=== PATIENT | male | born 1955 | race Caucasian/White ===

== ENCOUNTER 2022-06-17 02:14 | Emergency (ER) | payer MEDICARE, BC, SELFPAY ==
[2022-06-17 02:22] VITALS: BP 131/67; PULSE 126; TEMP 36.9; O2SAT 99
[2022-06-17] MEDS: Ondansetron 4 MG/2 ML VIAL (02:45)
--- NOTE | 2022-06-17 02:45 | RT.EKG_ITS ---
APPROVED REPORT Exam: Resting ECG Reason for Exam: nausea Patient Location: E HR:102 bpm ECG Measurements Heart Rate 102 AXIS WA 160 P 42 QRSd 150 QRS -35 QT 372 T 130 QTc 485 Conclusion Sinus tachycardia Left bundle branch block. ST elevation secondary to IVCD. No comparison
--- NOTE | 2022-06-17 02:47 | ED.GENADUL_ITS ---
Discharge Plan Disposition Patient Disposition: Home Condition: Improving Discharge Details Clinical Impression: Urinary tract infection Primary Care Provider: Charles Spears ED Provider: Michi Shaffer Home Meds and New Rx's Prescriptions: New cefpodoxime 100 mg tablet 100 mg PO BID 7 Days Qty: 14 0RF Rx Instructions: must administer with a meal/food Discharge Instructions Instructions: Urinary Tract Infection in Men (ED) Additional Instructions: Home to rest today. Take antibiotics as prescribed until finished. Continue small, frequent sips of fluids to maintain hydration. Tylenol and ibuprofen as needed for aches or fever. Return to the emergency department for any acute concern. Medical Decision Making 66-year-old male presents from home with his . He has had 4 days of intermittent episodes of nausea with dry heaves. He has general malaise, lower abdominal discomfort and some reported burning with urination. Differential diagnosis considered is broad including urinary tract infection, renal colic, consideration of intra-abdominal pathology. Patient had IV access established, fluids and antiemetic initiated. Laboratories reveal a white count of 12, hematocrit 48, platelets 165. Unremarkable electrolytes, BUN 21, creatinine 1.2. LFTs unremarkable and lipase negative. Urinalysis is notable for moderate leuk esterase, greater than 50 white blood cells per high-powered field and bacteria present. Patient was referred for CT imaging to rule out obstructive urinary pathology. There is no acute findings. Please see the formal report. Note is made of enlarged prostate. Patient improved following fluids, antiemetic and parenteral antibiotic. This is consistent with acute cystitis, cannot exclude underlying mild prostatitis. Will treat with a course of oral antibiotics. He stable, improved, appropriate for discharge to home. He will follow-up with Dr. Spears as planned this coming week. HPI General Mode of arrival: ambulatory . Date/Time Provider Initiated Documentation: 06/17/22 02:38 . Limitations to Documentation: no limitations . Information obtained by: patient and family . History of Present Illness 66 year old M presents to the emergency department with the chief complaint of Nausea, dry heaves, malaise, described as moderate, Quality is described as constant, Patient reports no radiation. Patient started experiencing this day(s) and it has been constant. No relieving factors improve symptom(s), No exacerbating factors reported . Patient notes fever/chills, loss of appetite, malaise and nausea/vomiting; denies chest pain, shortness of breath and syncope. Patient did receive the following treatments prior to arrival, none Related Data Home Medications Medication Instructions Recorded Confirmed cefpodoxime 100 mg tablet 100 mg PO BID 7 days #14 tabs 06/17/22 Previous Rx's Medication Instructions Recorded cefpodoxime 100 mg tablet 100 mg PO BID 7 days #14 tabs 06/17/22 General Stated Complaint: [facility] JOSE F: 3 Review of Systems Narrative: 8 systems reviewed and otherwise negative PFSH All Active Problems (Updated 06/17/22 @ 05:31 by Michi Shaffer MD) Urinary tract infection (Acute) Social History Smoking/Tobacco Use Status: Never Smoking risk assessment performed?: Yes Alcohol Intake: never Drug use: Never Substance use type: does not use Do you feel safe at home: Yes Do you feel safe in your relationship?: Yes Exam Narrative Exam Narrative: GEN: awake, alert, oriented 3. Pleasant, well groomed, interactive. HEAD: Normocephalic, atraumatic ENT: Mucous membranes dry, oropharynx unremarkable, External ear exam unremarkable EYES: PERRL, EOMI NECK: Full ROM, no CRISTINA, no menigismus CHEST/RESP: Nontender, clear to auscultation bilateral, no wheeze/rhonchi/rales CARDIOVASCULAR: Regular and tachycardic, no murmur, rub cassy. 2+ Rad pulse bilateral ABDOMEN: Soft, nontender, no mass. +Bowel sounds EXT: Full ROM, no edema, no rash Neuro: Grossly normal neurologic exam, conversant, interactive. Psych: Speech fluent, thoughts congruent, affect normal Course Vital Signs Vital signs: Vital Signs Temperature 36.9 C 06/17/22 02:22 Pulse 126 H 06/17/22 02:22 Blood Pressure 131/67 06/17/22 02:22 Pulse Oximetry 99 06/17/22 02:22 Temperature 36.9 C 06/17/22 02:22 Temperature Source Oral 06/17/22 02:22 Pulse 126 H 06/17/22 02:22 Respiratory Effort 06/17/22 02:27 Blood Pressure 131/67 06/17/22 02:22 Blood Pressure Position Sitting 06/17/22 02:22 Pulse Oximetry 99 06/17/22 02:22 Oxygen Delivery Method Room Air 06/17/22 02:22 Oxygen Flow Rate 0 06/17/22 02:22 Pain Level 5 06/17/22 02:22
[2022-06-17 02:57] LABS: Abs Immature Grans 0.04 10^3/uL (0.0-0.06); Absolute Basophil Count 0.02 10^3/uL (0.0-0.2); Absolute Eosinophil Count 0.14 10^3/uL (0.0-0.7); Absolute Lymphocyte Count 0.87 10^3/uL (1.2-3.4); Absolute Monocyte Count 1.17 10^3/uL (0.1-0.8); Absolute Neutrophil Count 10.19 10^3/uL (1.2-6.7); Basophils % 0.2; Eosinophils % 1.1; HCT 48.9 % (40.0-50.0); HGB 16.7 g/dL (13.5-17.5); Immature Grans % 0.3; MCH 29.2 pg (27.0-33.0); MCHC 34.2 % (32.0-36.0); MCV 86 fL (80-95); Monocytes % 9.4; Platelet Count 165 10^3/uL (130-400); RBC 5.71 10^6/uL (4.36-5.78); RDW 12.7 % (11.8-14.1); RDW-SD 39.7 fL; WBC 12.43 10^3/uL (4.4-10.8)
[2022-06-17 03:15] LABS: ALT 19 U/L (16-63); AST 20 U/L (15-37); Albumin 3.3 g/dL (3.4-5.0); Alkaline Phosphatase 81 U/L (46-116); Anion Gap 13.2 mmol/L (3-11); BUN 21 mg/dL (7-18); Bilirubin, Total 1.1 mg/dL (0.2-1.0); CO2 22.8 mmol/L (21.0-32.0); CREATININE 1.2 mg/dL (0.70-1.30); Calcium 8.8 mg/dL (8.5-10.1); Chloride 100 mmol/L (98-107); Estimated GFR 66.28 (mL/min/1.73m2); Glucose 140 mg/dL (74-106); Lipase 70 U/L (73-393); Magnesium 1.8 mg/dL (1.8-2.4); Potassium 3.9 mmol/L (3.5-5.1); Sodium 136 mmol/L (136-145); Total Protein 7.5 g/dL (6.4-8.2); Troponin I < 50 ng/L (<or=60)
[2022-06-17] MEDS: Normal Saline 1,000 ML 1000 ML IV (03:22)
[2022-06-17 03:34] LABS: COVID-19 PCR Negative (Negative); Influenza A PCR Negative (Negative); Influenza B PCR Negative (Negative); RSV PCR Negative (Negative)
[2022-06-17 03:36] LABS: Source Nasopharynx
[2022-06-17 03:49] LABS: Bilirubin Small (Negative); Blood Small (Negative); Clarity Cloudy (Clear); Glucose Negative (Negative); Ketones 40 mg/dL (Negative); Leukocyte Esterase Moderate (Negative); Nitrite Negative (Negative); Specific Gravity 1.025 (1.005-1.025)
[2022-06-17 03:59] LABS: Bacteria Many HPF (Negative); C & S Indicated? Yes; Crystals Negative HPF (Negative); Epithelial Cells Few HPF (Negative); Mucus Negative (Negative); RBC 0-2 HPF (0-2); WBC >50 HPF (0-5)
--- NOTE | 2022-06-17 04:00 | DI.CT_ITS ---
Exam(s) CT RENAL COLIC WO EXAM: CT RENAL COLIC WO CLINICAL HISTORY: LOwer abd pain, dysuria. TECHNIQUE: Imaging Protocol: Axial computed tomography images with coronal and sagittal reformatted images were created and reviewed. CONTRAST MATERIAL: Noncontrast COMPARISON: No exams were available for comparison FINDINGS: ABDOMEN: Lung Bases: 6 millimeter nodule left lateral lung base. Liver: Hepatic steatosis. Multiple small low-density lesions, likely cysts. Gallbladder and biliary tract: Status post cholecystectomy. No radiodense calculus or dilation. Pancreas: Normal density, no calcifications or inflammatory process. Spleen: Normal. Kidneys: Normal size, contour and axis. No radiodense stones or obstructive uropathy. Large cyst upp er pole left kidney. No suspicious masses seen. Adrenal glands: No masses seen. soft tissues: Tiny fatty containing umbilical hernia. ABdominal Aorta: Atherosclerotic changes. 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 PELVIS: Bladder: Symmetric distention, no gross wall thickening. No evidence of stones.No visible mass. Bowel: No obstruction or bowel wall thickening. Reproductive: Prostate mildly enlarged. Peritoneal cavity: No ascites, collection or mesenteric inflammatory response. Bones: Unremarkable for age.. IMPRESSION: No acute abnormality. No evidence of hydronephrosis or urinary tract calculi. Large left renal cyst . 6 millimeter nodule left lung base. Six-month follow-up CT recommended. RADIATION DOSE DELIVERED: 1,350.23mGy.cm Total DLP DATA REPOSITORY: All CT scans at this facility are submitted to the National Radiology Data Registry (NRDR) Dose Index Registry (DIR) with the [employer] (A[employer]). RADIATION OPTIMIZATION: All CT scans at this facility use at least one of these dose optimization te chniques: automated exposure control; mA and/or kV adjustment per patient size (includes targeted exa ms where dose is matched to clinical indication); or iterative reconstruction.
[2022-06-17] MEDS: cefTRIAXone 1 GM/50 ML BAG IVPB (04:34)
--- NOTE | 2022-06-17 05:28 | DI.VRAD_ITS ---
PROCEDURE INFORMATION: Exam: CT Abdomen And Pelvis Without Contrast Exam date and time: 06/17/2022 4:16 AM Age: 66 years old Clinical indication: Abdominal pain; Other: Lower quadrant; Prior surgery; Surgery date: 6+ months TECHNIQUE: Imaging protocol: Computed tomography of the abdomen and pelvis without contrast. COMPARISON: No relevant prior studies available. FINDINGS: Lungs: 7 mm left lower lobe pulmonary nodule, image 28 of series 2. Liver: Small indeterminate hypoattenuating hepatic lesion, incompletely characterized but most likely a small cyst or hemangioma. Diffuse fatty infiltration of the liver. Gallbladder and bile ducts: Prior cholecystectomy. No biliary dilatation. Pancreas: Grossly unremarkable unenhanced pancreas. Spleen: Grossly unremarkable unenhanced spleen. Adrenal glands: Normal appearing adrenal glands. Kidneys and ureters: 10.8 cm x 7.8 cm x 7.0 cm cyst arising from the upper pole of the left kidney, possibly multiloculated. Otherwise normal-appearing kidneys. No hydronephrosis. No obstructing ureteral stones. Stomach and bowel: No oral contrast. Stomach moderately distended with gas. No small bowel dilatation to suggest obstruction. Colon completely evacuated of formed fecal material. Fluid and gas throughout the colon suggesting probable diarrhea or impending diarrhea. No evidence of diverticulitis or colitis. Appendix: Normal appendix. Intraperitoneal space: No gross ascites or free air. Vasculature: Mild dilatation of the infrarenal abdominal aorta measuring 2.6 cm maximum AP dimension. Lymph nodes: No pathologically enlarged mesenteric, retroperitoneal, or pelvic sidewall lymph nodes. Urinary bladder: Normal-appearing urinary bladder, moderately distended. Reproductive: Mildly enlarged prostate gland, 4.6 cm x 5.8 cm maximum axial dimension. Normal-appearing seminal vesicles. Bones/joints: No acute fracture seen among the bones of the abdomen or pelvis. Six [id number] lumbar type vertebral bodies with a transitional L6 vertebral body which is hemisacralized on the right with partial fusion across the L6-S1 disc space. Please note that vertebral body numbering is not definitive in the absence of complete spinal visualization. Soft tissues: Tiny fat-containing ventral hernia at the umbilicus, doubtful clinical significance. IMPRESSION: 1. Colon completely evacuated of formed fecal material. Fluid and gas throughout the colon suggesting probable diarrhea. 2. Diffuse fatty infiltration of the liver. 3. 7 mm left lower lobe pulmonary nodule. Dictated and Authenticated by: Robert Velazquez MD. Ordering:JOHN Borden MD
[2022-06-17 05:47] VITALS: BP 132/82; PULSE 99; RESP 17; TEMP 37.2; O2SAT 99
== END 2022-06-17 06:05 | disposition home or self-care (01) ==
PROVIDERS: Emergency Provider Emergency Medicine; PCP Neuromusculoskeletal Medicine & OMM
DX: N39.0 Urinary tract infection, site not specified (principal); Z20.822 Contact with and (suspected) exposure to COVID-19
CPT/HCPCS: 80053; 83690; 87077; 87637; 93005; 96361; 96372; 96374; 99284; 74176; 81003; 81015; 83735; 84484; 85025; 87086; 87186; 93010; J0696; J2405

== ENCOUNTER 2022-09-10 17:28 | Outpatient (CLI) | payer MEDICARE, BC, SELFPAY ==
--- NOTE | 2022-09-10 15:30 | DI.RAD_ITS ---
Exam(s) XR FOOT RT COMPLETE EXAM: XR FOOT RT COMPLETE CLINICAL HISTORY: foot pain, peroneal tendinitis, M76.70, plantar fasciitis, M72.2. TECHNIQUE: 2D digital imaging was performed of the right foot. Three images were obtained. AP, obl ique and lateral views were obtained. COMPARISON: No exams were available for comparison FINDINGS: BONES: No acute fracture is present. No bony destructive lesion is seen. There is a small enthesophyt e at the posterior calcaneus. JOINTS: No dislocation present. Moderately severe degenerative changes are seen at the 1st MTP joint with joint space narrowing and bony hypertrophy. SOFT TISSUE: Normal. 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 DATA REPOSITORY: RADIATION DOSE DELIVERED:
--- NOTE | 2022-09-10 15:30 | DI.RAD_ITS ---
Exam(s) XR FOOT LT COMPLETE EXAM: XR FOOT LT COMPLETE CLINICAL HISTORY: foot pain, plantar fasciitis, hallux rigidus, M72.2, M20.20. TECHNIQUE: 2D digital imaging was performed of the left foot. Three images were obtained. AP, obli que and lateral views were obtained. COMPARISON: No exams were available for comparison FINDINGS: BONES: No acute fracture is present. No bony destructive lesion is seen. There is a small plantar diogenes caneal spur. JOINTS: No dislocation present. There are mild degenerative changes seen at the 1st MTP joint with ismael int space narrowing and periarticular spurring present. SOFT TISSUE: Normal. IMPRESSION: Degenerative changes of the foot. DATA REPOSITORY: RADIATION DOSE DELIVERED:
== END 2022-09-10 17:48 ==
LOC: DI 17:29
PROVIDERS: PCP Neuromusculoskeletal Medicine & OMM; Visit Provider Podiatrist Foot & Ankle Surgery
DX: M79.671 Pain in right foot (principal); M79.672 Pain in left foot; M77.31 Calcaneal spur, right foot; M77.32 Calcaneal spur, left foot; M19.072 Primary osteoarthritis, left ankle and foot; M72.2 Plantar fascial fibromatosis; M19.071 Primary osteoarthritis, right ankle and foot
CPT/HCPCS: 73630

== ENCOUNTER 2024-04-15 08:50 | Outpatient (RCR) | payer MEDICARE, BC, SELFPAY | END 2024-04-30 23:59 | disposition home or self-care (01) | LOC: CR 08:50 | PROVIDERS: PCP Family Medicine; Visit Provider Internal Medicine Cardiovascular Disease | DX: I25.10 Atherosclerotic heart disease of native coronary artery without angina pectoris (principal) ==

== ENCOUNTER → 2024-06-17 09:45 | Outpatient (BNVA) | payer MEDICARE, BC, SELFPAY | PROVIDERS: PCP Family Medicine; Referring Provider Family Medicine; Visit Provider Student in an Organized Health Care Education/Training Program | DX: Z95.810 Presence of automatic (implantable) cardiac defibrillator (principal); I44.7 Left bundle-branch block, unspecified | CPT/HCPCS: 93288 ==

== ENCOUNTER 2024-06-29 08:01 | Outpatient (RCR) | payer MEDICARE, BC, SELFPAY ==
--- NOTE | 2024-06-03 11:15 | RT.EKG_ITS ---
APPROVED REPORT Exam: Resting ECG Reason for Exam: Baseline Patient Location: O HR:76 bpm ECG Measurements Heart Rate 76 AXIS MO 199 P 34 QRSd 156 QRS -44 QT 443 T 117 QTc 499 Conclusion Sinus rhythm...normal P axis, V-rate 50- 99 Left bundle branch block...QRSd>120, broad/notched R
--- NOTE | 2024-06-17 09:30 | RT.EKG_ITS ---
APPROVED REPORT Exam: Resting ECG Reason for Exam: ?NSVT Patient Location: O HR:82 bpm ECG Measurements Heart Rate 82 AXIS OK 192 P 28 QRSd 155 QRS -40 QT 418 T 122 QTc 489 Conclusion Sinus rhythm...normal P axis, V-rate 50- 99 Left bundle branch block...QRSd>120, broad/notched R
--- NOTE | 2024-06-19 08:45 | RT.EKG_ITS ---
APPROVED REPORT Exam: Resting ECG Reason for Exam: NSVT Patient Location: O HR:81 bpm ECG Measurements Heart Rate 81 AXIS MN 185 P 32 QRSd 154 QRS -8 QT 408 T 172 QTc 474 Conclusion Sinus rhythm...normal P axis, V-rate 50- 99 Left bundle branch block...QRSd>120, broad/notched R
== END 2024-06-30 23:59 | disposition home or self-care (01) ==
LOC: CR 08:01
PROVIDERS: PCP Family Medicine; Visit Provider Internal Medicine Cardiovascular Disease
DX: I25.10 Atherosclerotic heart disease of native coronary artery without angina pectoris (principal); Z51.89 Encounter for other specified aftercare
CPT/HCPCS: S9472

== ENCOUNTER 2024-07-10 08:17 | Outpatient (RCR) | payer MEDICARE, BC, SELFPAY | END 2024-07-31 23:59 | disposition home or self-care (01) | LOC: CR 08:17 | PROVIDERS: PCP Family Medicine; Visit Provider Internal Medicine Cardiovascular Disease | DX: I20.0 Unstable angina (principal); Z51.89 Encounter for other specified aftercare | CPT/HCPCS: S9472 ==

== ENCOUNTER 2024-08-19 08:20 | Outpatient (RCR) | payer MEDICARE, BC, SELFPAY | END 2024-08-28 23:59 | disposition home or self-care (01) | LOC: CR 08:20 | PROVIDERS: PCP Family Medicine; Visit Provider Internal Medicine Cardiovascular Disease | DX: I25.10 Atherosclerotic heart disease of native coronary artery without angina pectoris; Z51.89 Encounter for other specified aftercare | CPT/HCPCS: S9472 ==

== ENCOUNTER → 2024-12-16 09:21 | Outpatient (BNVA) | payer MEDICARE, BC, SELFPAY | PROVIDERS: PCP Family Medicine; Referring Provider Family Medicine; Visit Provider Registered Nurse | DX: I49.9 Cardiac arrhythmia, unspecified (principal); Z95.0 Presence of cardiac pacemaker; I44.7 Left bundle-branch block, unspecified; Z79.02 Long term (current) use of antithrombotics/antiplatelets; I25.2 Old myocardial infarction | CPT/HCPCS: 99214; 93280 ==

== ENCOUNTER 2025-06-02 09:01 | Outpatient (CLI) | payer MEDICARE, BC, SELFPAY ==
[2025-06-02 09:08] LABS: HCT 46.7 % (40.0-50.0); HGB 16.1 g/dL (13.5-17.5); MCH 29.7 pg (27.0-33.0); MCHC 34.5 % (32.0-36.0); MCV 86 fL (80-95); MPV 10.5 fL (8.0-11.0); Platelet Count 195 10^3/uL (130-400); RBC 5.42 10^6/uL (4.36-5.78); RDW 13.3 % (11.8-14.1); RDW-SD 41.2 fL; WBC 5.94 10^3/uL (4.4-10.8)
[2025-06-02 09:50] LABS: ALT 13 U/L (10-49); AST 19 U/L (<34); Albumin 4.1 g/dL (3.2-5.0); Alkaline Phosphatase 70 U/L (46-116); Anion Gap 8.4 mmol/L (3-11); BUN 28 mg/dL (9-23); Bilirubin, Total 1.20 mg/dL (0.2-1.2); CO2 25.6 mmol/L (20.0-31.0); Calcium 9.2 mg/dL (8.3-10.6); Chloride 108 mmol/L (98-107); Glucose 105 mg/dL (74-106); Potassium 4.5 mmol/L (3.5-5.1); Sodium 142 mmol/L (136-145); Total Protein 6.7 g/dL (5.7-8.2)
[2025-06-02 10:00] LABS: Hemoglobin A1C 5.4 % (<5.7)
[2025-06-02 19:13] LABS: CA 19-9 22 U/mL (<35)
== END 2025-06-02 09:02 | disposition home or self-care (01) ==
LOC: LBO 09:02
PROVIDERS: PCP Family Medicine; Visit Provider Surgery
DX: E13.9 Other specified diabetes mellitus without complications (principal); C25.0 Malignant neoplasm of head of pancreas; E89.1 Postprocedural hypoinsulinemia; Z90.410 Acquired total absence of pancreas; D49.0 Neoplasm of unspecified behavior of digestive system
CPT/HCPCS: 36415; 80053; 85027; 83036; 86301